=== PATIENT | female | born 1940 | race Caucasian/White ===

== ENCOUNTER → 2016-09-09 | Outpatient (CLI) | payer OTHER | LOC: BHCLAF 09:30 | PROVIDERS: ATTEND Internal Medicine Cardiovascular Disease | DX: R00.2 Palpitations (principal) | CPT/HCPCS: 93005-PO ==

== ENCOUNTER → 2016-11-16 | Outpatient (CLI) | payer OTHER | LOC: BMCIMAGING 10:35 | PROVIDERS: ATTEND Internal Medicine Rheumatology | DX: M19.041 Primary osteoarthritis, right hand (principal) ==

== ENCOUNTER → 2017-04-28 | Outpatient (CLI) | payer OTHER | LOC: FIMAGING 09:46 | PROVIDERS: ATTEND Internal Medicine Hematology & Oncology | DX: L76.34 Postprocedural seroma of skin and subcutaneous tissue following other procedure (principal); R92.0 Mammographic microcalcification found on diagnostic imaging of breast | CPT/HCPCS: 76641; G0204 ==

== ENCOUNTER → 2017-05-10 | Day surgery (SDC) | payer OTHER ==
[~2017-05-10] MED LIST: BUPIVACAINE 0.5% 10 ML SDV ONE; LIDOCAINE 1% 300 MG/30 ML SDV ONE; THROMBIN (BOVINE) 5,000 UNIT VIAL TP ONE
== END | disposition home or self-care (01) ==
LOC: FIMAGING 07:15
PROVIDERS: ATTEND Nurse Practitioner
PROC: 0HBU3ZX Excision of Left Breast, Percutaneous Approach, Diagnostic (ICD-10-PCS; principal; 2017-05-10)
PROC: BH01ZZZ Plain Radiography of Left Breast (ICD-10-PCS; principal; 2017-05-10)
DX: R92.0 Mammographic microcalcification found on diagnostic imaging of breast (principal)
CPT/HCPCS: G0206

== ENCOUNTER → 2017-06-14 | Outpatient (CLI) | payer OTHER | LOC: BRMIMAGING 09:54 | PROVIDERS: ATTEND Internal Medicine Hematology & Oncology | DX: Z13.820 Encounter for screening for osteoporosis (principal); M81.0 Age-related osteoporosis without current pathological fracture; Z85.3 Personal history of malignant neoplasm of breast ==

== ENCOUNTER 2018-06-01 08:13 | Day surgery (SDC) | payer OTHER ==
[2018-06-01] MEDS ORDERED: BUPIVACAINE 0.25% 30 ML SDV ONE ×2 (08:34→13:07)
[2018-06-01] MEDS ORDERED: EPINEPHrine 1 MG/ML INJ ONE (08:34)
[2018-06-01] MEDS ORDERED: BACITRACIN 50,000 UNITS/10 ML SYR IRR ONE (08:35)
[2018-06-01] MEDS ORDERED: ceFAZolin 2 GM/DEXTROSE 100 ML IV ONE (08:41)
[2018-06-01] MEDS ORDERED: LR 1,000 ML IV ONE (08:41)
[2018-06-01] MEDS ORDERED: MIDAZOLAM 2 MG/2 ML VIAL ONE (09:33)
[2018-06-01] MEDS ORDERED: LIDOCAINE 2% 5 ML SDV ONE (09:37)
[2018-06-01] MEDS ORDERED: PROPOFOL/EMULSION 500 MG/50 ML BOTTLE IV ONE ×3 (09:37→11:56)
--- NOTE | 2018-06-01 09:44 | PDHPUP ---
History & Physical Update H&P update statement: This history and physical update is based on an assessment of the patient which was completed after admission or registration (within 24 hours), but prior to the surgery/procedure. H&P update: H&P reviewed & patient examined, no change in patient's condition since H&P completed
--- NOTE | 2018-06-01 09:45 | PDANEPAE ---
ANE Past Medical History - Cardiovascular History Hx Hypertension: No Hx Arrhythmias: No Hx Chest Pain: No Hx Coronary Artery / Peripheral Vascular Disease: No Hx CHF / Valvular Disease: No Hx Palpitations: No - Pulmonary History Hx COPD: No Hx Asthma/Reactive Airway Disease: Yes Hx Recent Upper Respiratory Infection: No Hx Oxygen in Use at Home: No Hx Sleep Apnea: No Sleep Apnea Screening Result - Last Documented: Negative - Neurologic History Hx Cerebrovascular Accident: No Hx Seizures: No Hx Dementia: No Neurologic History Comment: genetic neuropathy - Endocrine History Hx Diabetes: No - Renal History Hx Renal Disorders: No - Liver History Hx Hepatic Disorders: No - Neurological & Psychiatric Hx Hx Neurological and Psychiatric Disorders: No - Cancer History Hx Cancer: Yes Cancer History Comment: left breast cancer - Congenital Disorder History Hx Congenital Disorders: No - GI History Hx Gastrointestinal Disorders: No - Other Health History Other Health History: none - Chronic Pain History Chronic Pain: No - Surgical History Prior Surgeries: bunionectomy x 2. left breast lumpectomy. right TKA ANE Review of Systems Review of Systems: - Exercise capacity METS (RN): 5 METS ANE Patient History - Allergies Allergies/Adverse Reactions: No Known Allergies Allergy (Unverified 05/16/18 10:12) - Home Medications Home Medications: Arimidex 1 mg (*) 05/16/18 [Last Taken 05/31/18] Calcium 05/16/18 [Last Taken 05/30/18] Gabapentin 05/16/18 [Last Taken 05/31/18] Montelukast Sodium 05/16/18 [Last Taken 05/31/18] Vitamin D3 05/16/18 [Last Taken 05/30/18] - NPO status NPO Since - Liquids (Date): 05/31/18 NPO Since - Liquids (Time): 22:00 NPO Since - Solids (Date): 05/31/18 NPO Since - Solids (Time): 19:00 - Smoking Hx Smoking Status: Never smoked - Family Anes Hx Family Hx Anesthesia Complications: none ANE Labs/Vital Signs - Vital Signs Blood Pressure: 123/77 Heart Rate: 79 Respiratory Rate: 16 O2 Sat (%): 98 Height: 157.48 cm Weight: 46.266 kg ANE Physical Exam - Airway Neck exam: FROM Mallampati Score: Class 1 Mouth exam: normal dental/mouth exam - Pulmonary Pulmonary: no respiratory distress, no rales or rhonchi, clear to auscultation - Cardiovascular Cardiovascular: regular rate and rhythym, no murmur, rub, or gallop - ASA Status ASA Status: III ANE Anesthesia Plan Anesthesia Plan: GA w LMA Total IV Anesthesia: Yes
[2018-06-01] MEDS ORDERED: NALOXONE HCL 0.4 MG/ML INJ IVP PRN (10:28)
[2018-06-01] MEDS ORDERED: DEXAMETHASONE 4 MG/ML VIAL IVP PRN (10:28)
[2018-06-01] MEDS ORDERED: ACETAMINOPHEN 500 MG TAB PO PRN (10:28)
[2018-06-01] MEDS ORDERED: ALBUTEROL 3 ML DEYVIAL IH PRN (10:28)
[2018-06-01] MEDS ORDERED: fentaNYL 100 MCG/2 ML INJ IVP PRN (10:28)
[2018-06-01] MEDS ORDERED: LR 500 ML IV PRN (10:28)
[2018-06-01] MEDS ORDERED: ONDANSETRON 4 MG/2 ML VIAL IVP PRN (10:28)
--- NOTE | 2018-06-01 13:30 | POSTOPPROG ---
Post Op Note Date of Operation: 06/01/18 Surgeon: Winston Orr Biology Research Assistant: none Anesthesiologist: corie Anesthesia: LMA Pre-op Diagnosis: bunion and hammertoes right Post-op Diagnosis: same Indication: pain Procedure: 1st met cuneiform fusion, hammertoe repairs 2-4 Findings: none Inf/Abcess present in the surg proc area at time of surgery?: No Depth: Deep Incisional (Fascial) EBL: Minimal Total fluids administered: 45 cc .25% marcaine plain and with epi Complications: none Drains: Other (none)
--- NOTE | 2018-06-01 13:35 | POSTANESTH ---
Post Anesthetic Evaluation Cardiovascular Status: Normal, Stable, Similar to Pre-Op Cond Respiratory Status: Normal, Stable, Similar to Pre-op Cond. Level of Consciousness/Mental Status: Moderately Sleepy Pain Control: Adequate, Prn Tx Ordered Nausea/Vomiting Control: Adequate, Prn Tx Ordered Complications Possibly Related to Anesthesia: None Noted
[2018-06-01] MEDS ORDERED: ONDANSETRON 4 MG/2 ML VIAL ONE (13:44)
[2018-06-01] MEDS ORDERED: DEXAMETHASONE 4 MG/ML VIAL ONE (13:44)
[2018-06-01 14:56] VITALS: BP 123/76
--- NOTE | 2018-06-02 06:47 | GOP ---
DATE OF OPERATION: 06/01/2018 SURGEON: Winston Orr DPM BIOMEDICAL SPECIALIST: None. ANESTHESIA: General. ANESTHESIOLOGIST: Dr. Dodge PREOPERATIVE DIAGNOSIS: 1. Instability, right 1st metatarsal cuneiform joint. 2. Instability right intercuneiform joint. 3. Hallux abductovalgus, right. 4. Hammer toe, right 2nd. 5. Hammer, toe right 3rd. 6. Hammertoe, right 4th. 7. 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 POSTOPERATIVE DIAGNOSIS: 1. Instability, right 1st metatarsal cuneiform joint. 2. Instability right intercuneiform joint. 3. Hallux abductovalgus, right. 4. Hammer toe, right 2nd. 5. Hammer, toe right 3rd. 6. Hammertoe, right 4th. 7. 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 PROCEDURE PERFORMED: 1. Metatarsal cuneiform and intercuneiform joint fusion. 2. Modified Vazquez bunionectomy, right. 3. Allograft, right 1st metatarsal. 4. 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 5. Hammertoe correction, right 4th digit, by proximal interphalangeal joint fusion. 6. Capsulotomy, right 4th metatarsophalangeal joint. FINDINGS: SPECIMENS: None. ESTIMATED BLOOD LOSS: Minimal. DESCRIPTION OF PROCEDURE: Patient presented to [facility] and was cleared for the inte nded procedure. Patient was taken to the operating room and placed on the table in supine position. IV sedation was started per the anesthesia department. Foot was anesthetized in an infiltrative ner ve block fashion. Foot was prepped, scrubbed and draped in the usual sterile fashion. Following exs anguination by elevation and Esmarch bandage, pneumatic ankle tourniquet was inflated to 225 mmHg. A t this time, attention was directed to the right 1st ray, where a curvilinear incision was made start ing at the level of the metatarsal cuneiform joint on the medial aspect and curving dorsally over the 1st ray and over the 1st metatarsophalangeal joint, ending at the hallux interphalangeal joint. Thi s incision was carried deep utilizing sharp and blunt dissection, making sure that all neurovascular structures were identified and retracted. At this time, all superficial bleeders were cauterized. T he incision was carried down deep to the level of the metatarsophalangeal joint. At this time, atten tion was redirected into the 1st intermetatarsal space, where again utilizing sharp and blunt dissect ion was carried to the level of the adductor tendon. The adductor tendon was sharply released from i ts insertion at the base of the proximal phalanx and sectioned and removed. An inverted L capsulotom y was performed. Capsular tissues were then dissected free medially and laterally to allow for adequ ate exposure to the metatarsophalangeal joint. There was no substantial degenerative process in the cartilaginous surface at this time. Previous surgeries had left the metatarsal head somewhat staked. The sesamoids were noted to be scarred down plantarly, so the McGlamry elevator was introduced and these were freed up, which allowed for better motion at the metatarsophalangeal joint. Upon completi on of this, attention was redirected to the 1st metatarsal cuneiform joint. Hypermobility of this susan int was appreciable. At this time, it was decided that fusion would be necessary. A linear capsulot angle was performed. Capsular tissues were dissected free dorsally and plantarly to allow for adequate exposure to the joint surface. At this time, the Pointblank bone cutting guide was introduced. A 10-d egree guide was placed onto the site with K-wire fixation. The sagittal saw was then utilized to per form the osteotomies and the opposing bone and cartilage sites were then dissected free and removed. Upon completion of this, the subchondral drilling was performed with K-wire fixation on both sides o f the joint for fusion purposes. C-arm fluoroscopy at this time showed considerable bowing of the me tatarsal due to a previous metatarsal osteotomy. It was decided that, given the increase in the inte rmetatarsal angle, the metatarsal would be transposed laterally and re-impacted upon the shaft. It w as held temporarily with K-wire fixation. C-arm fluoroscopy, at this time, showed that the 1st metat arsal would be short compared to the 3rd metatarsal. We could not compare it to the 2nd as the 2nd m etatarsal head had previously been resected. It was decided, at this time, that an allograft was nec essary. The Pointblank 28 allograft 5 mm wedge was then rehydrated and placed into the fusion site. Ag ain, this was temporarily fixated with K-wire fixation. This showed a more normal metatarsal parabol a. It was decided, at this time, that the Arthrex plantar plate would be utilized to obtain the fusi on. This was temporarily fixated onto the fusion site. The proximal screws were drilled as 3.5 lock ing screws and an 18 and a 14 mm screw were placed into the plate. The interfragmentary screw was th en drilled through the metatarsal allograft and into the cuneiform. C-arm fluoroscopy showed excelle nt positioning to this and ultimately a 28 mm cortical screw was placed into the site. Before this w as completely tightened, all remaining fixation in terms of K-wires across the area was removed. The area was tightened up and excellent compression at the fusion site was obtained. The 2 proximal scr ews were then also drilled as 3.5 locking screws and a 22 and a 28 mm screw were introduced, utilizin g them to also obtain intercuneiform fusion for better stability to the site. The area was flushed w ith copious amounts of sterile saline at this time. At this time, there was noted to be continued me dial prominence to the metatarsal from the previous failed osteotomy. It was decided that a modified Vazquez bunionectomy would be performed. The excessive bone, not at the head but more at the neck, was then excised with a sagittal saw. The entire area was smoothed with a power bur. The area was a gain flushed with copious amounts of sterile saline. C-arm fluoroscopy at this time showed an excell ent reduction of the intermetatarsal angle, no evidence of medial peaking of the tibial sesamoid, and a much more rectus alignment to the metatarsophalangeal joint. Given the previous osteotomy in the proximal phalanx, I did not think that another Julio osteotomy would be possible. The area was flushe d with copious amounts of sterile saline again before capsule was closed over both sites with 2-0 and 3-0 Vicryl, followed by subcutaneous closure with 5-0 Vicryl and skin closure with 5-0 nylon. The a reas then had a light sterile dressing applied before the pneumatic ankle tourniquet was released for a total tourniquet time of 102 minutes. The tourniquet was then left down for approximately 25 paaym fidel before exsanguination was again performed with an Esmarch and elevation. The pneumatic ankle rajiv rniquet was again inflated to 225 mmHg. At this time, attention was directed to the 2nd and 3rd toes , which were crossover hammertoes at this point. Given the fact that previous bone resections from t he 2nd metatarsal head and base of the proximal phalanx of the 3rd digit as well as previous hammerto e corrections had failed, it was decided that syndactylization of the toes was the only option availa ble. The interposing skin tissue was marked out appropriately between the 2 toes and properly incise d before excision of the tissue flaps was removed. The tissue flaps on both the 2nd and 3rd digits w ere then undermined to allow for proper suturing on the dorsal and plantar aspects for syndactylizati on. The areas were flushed with copious amounts of sterile saline before the incisions were closed w ith 5-0 nylon. At this point, the 2 toes were sitting in excellent alignment and attention was then redirected to the 4th metatarsophalangeal joint and interphalangeal joint. Again, this area had had previous surgery, and an incision was made over this area and carried deep utilizing sharp and blunt dissection, making sure that all neurovascular structures were identified and retracted. At this jai e, all superficial bleeders were cauterized. The incision was carried down to the level of the proxi mal interphalangeal joint. The extensor apparatus was sharply transected at the level of the joint a nd dissected free proximally to allow for adequate exposure to the area. Obvious bony regrowth had o ccurred with dislocation at the proximal interphalangeal joint. It was decided that the bony exostos is would be removed with a sagittal saw in a [id number] position. The interposing bone tissue was dissected free and removed. The cartilaginous surface from the base of the intermediate phalanx was then removed with a high-speed bur. The area was flushed with copious amounts of sterile saline before the area was drilled appropriately for the Synthes Hammerlock. Both sides were broached appr opriately before the Hammerlock was placed into the proximal phalanx and then into the intermediate p halanx. The C-arm fluoroscopy at this time showed excellent alignment with no gapping at the fusion site. The area was flushed with copious amounts of sterile saline before the extensor apparatus was reapproximated with 3-0 Vicryl. There was still noted to be some dorsal contraction at the metatarso phalangeal joint. At this time, a stab incision was made with a 64 Towner blade and a dorsal capsulo johnathon was performed, allowing the toe to sit in a much more rectus alignment. The area was again flus hed with copious amounts of sterile saline before the subcutaneous closure was obtained with 5-0 Vicr yl, followed by skin closure with 5-0 nylon. The area was then infiltrated with more local anestheti c before all areas were dressed with Betadine-soaked Adaptics, 4 x 4's, Chad and Coban. The patient was taken to the recovery room with vital signs stable and vascular supply intact to the digits afte r the pneumatic ankle tourniquet had been released the second time for 49. HEMOSTASIS: PAT at 225 mmHg by 102 and 49 minutes. MATERIALS: Pointblank 28, 5 mm allograft bone wedge; Arthrex plantar locking plate; Arthrex 3.5 locking screws by 14, 18, 22 and 28 mm; Arthrex 3.5 cortical screw by 28 mm; Synthes Hammerlock small 0-degr ee implant. INJECTABLES: 30 cc 9:1 ratio 0.25% Marcaine plain, 0.25% Marcaine with epinephrine preoperatively. 15 cc 9:1 ratio 0.25% Marcaine plain, 0.25% Marcaine with epinephrine postoperatively. COMPLICATIONS: None. /[id number]/MODL
== END 2018-06-01 15:10 | disposition home or self-care (01) ==
LOC: FSGY 08:13
PROVIDERS: ATTEND Podiatrist Primary Podiatric Medicine
DX: M20.41 Other hammer toe(s) (acquired), right foot (principal); M25.374 Other instability, right foot; M20.11 Hallux valgus (acquired), right foot; M24.574 Contracture, right foot
CPT/HCPCS: C1713; C1762; J0171; J0690; J1100; J2250; J2405; J2704

== ENCOUNTER → 2018-12-05 | Outpatient (CLI) | payer OTHER | LOC: BHFA 16:15 | PROVIDERS: ATTEND Internal Medicine Interventional Cardiology | DX: R01.1 Cardiac murmur, unspecified (principal) ==